=== PATIENT | male | born 1985 | race Caucasian/White ===

== ENCOUNTER 2021-08-11 14:40 | Emergency (ER) | payer OTHER ==
[~2021-08-11] VITALS: Ht 182.9 cm; Wt 91.0 kg
[2021-08-11 14:40] VITALS: BP 132/68
--- NOTE | 2021-08-11 15:05 | PHYS DOC ---
General Adult EDM: Chief Complaint: PAIN ON URINATION HPI: HPI: Patient is a 35-year-old male who presents to the emergency department for urinary urgency and decreased urine output, dark urine, dysuria, an. Patient reports that he is feeling suprapubic pressure like he has to urinate but only a little bit comes out. Patient reports that his symptoms started 2 days ago. He reports that on he had body aches, fever with nausea and vomiting but that has resolved. (LOCO VÁZQUEZ APRN) Review of Systems: Review of Systems: Constitutional: See HPI GI: See HPI : See HPI Musculoskeletal: See HPI (LOCO VÁZQUEZ APRN) Allergies: Allergies: Allergies Coded Allergies Type Severity Reaction Last Updated Verified No Known Drug Allergies 08/11/21 No (LOCO VÁZQUEZ APRN) Physical Exam: PE: Constitutional: Well developed, well nourished, no acute distress, non-toxic appearance. [] HENT: Normocephalic, atraumatic, bilateral external ears normal, oropharynx moist, no oral exudates, nose normal. [] Eyes: PERRLA, EOMI, conjunctiva normal, no discharge. [] Neck: Normal range of motion, no tenderness, supple, no stridor. [] Cardiovascular:Heart rate regular rhythm, no murmur [] Lungs & Thorax: Bilateral breath sounds clear to auscultation [] Abdomen: Bowel sounds normal, soft, no tenderness, no masses, no abdominal guarding or rigidity, no pulsatile masses. [] Skin: Warm, dry, no erythema, no rash. [] Back: No tenderness, no CVA tenderness. [] Extremities: No tenderness, no cyanosis, no clubbing, ROM intact, no edema. [] Neurologic: Alert and oriented X 3, normal motor function, normal sensory function, no focal deficits noted. [] Psychologic: Affect normal, judgement normal, mood normal. [] (LOCO VÁZQUEZ APRN) Current Patient Data: Labs: Laboratory Tests Test 08/11/21 14:50 Urine Collection Type Clean catch Urine Color Yellow Urine Clarity Hazy Urine pH 8.0 Urine Specific [place] 1.020 Urine Protein 30 mg/dl Urine Glucose (UA) Neg mg/dL Urine Ketones (Stick) Neg mg/dL Urine Blood Mod Urine Nitrite Neg Urine Bilirubin Neg Urine Urobilinogen Dipstick 1.0 mg/dL Urine Leukocyte Esterase Mod Urine RBC 6-10 /HPF Urine WBC 5-10 /HPF Urine Squamous Epithelial Cells Many /LPF Urine Bacteria Mod /HPF Vital Signs: Vital Signs Date Time Temp Pulse Resp B/P (MAP) Pulse Ox O2 Delivery O2 Flow Rate FiO2 08/11/21 14:40 97.7 87 16 132/68 (89) 99 Room Air (LOCO VÁZQUEZ APRN) EKG: EKG: [] (LOCO VÁZQUEZ APRN) Radiology/Procedures: Radiology/Procedures: [] (LOCO VÁZQUEZ APRN) Heart Score: C/O Chest Pain: N/A Risk Factors: Risk Factors: DM, Current or recent (<one month) smoker, HTN, HLP, family history of CAD, obesity. Risk Scores: Score 0 - 3: 2.5% MACE over next 6 weeks - Discharge Home Score 4 - 6: 20.3% MACE over next 6 weeks - Admit for Clinical Observation Score 7 - 10: 72.7% MACE over next 6 weeks - Early Invasive Strategies (LOCO VÁZQUEZ APRN) Course & Med Decision Making: Course & Med Decision Making Pertinent Labs and Imaging studies reviewed. (See chart for details) [] Patient presents to the emergency department for urinary urgency, dysuria. Urinalysis was performed that showed urinary tract infection. Patient also had gonorrhea and Chlamydia testing performed of her urine. Patient be notified of those results if he is positive in 1 to 2 days. Patient be treated with an antibiotic. Advised to increase fluids and avoid bladder irritants. He will be discharged home with nausea medication as needed. I discussed with patient all findings and diagnostic testing as well as the need to follow-up with PCP for further evaluation and treatment or return to the ER if any new or worsening symptoms. Strict return precautions were also discussed at length. Patient voiced understanding and agreement with the plan. Patient is hemodynamically stable at the time of disposition. (LOCO VÁZQUEZ APRN) Dragon Disclaimer: Dragon Disclaimer: This electronic medical record was generated, in whole or in part, using a voice recognition dictation system. (LOCO VÁZQUEZ APRN) Attending Co-Sign The patient was seen and interviewed as well as examined at the bedside. The chart was reviewed. The case was discussed. Agree with the plan of care. (ALEX VALIENTE DO) Departure Departure: Impression: Primary Impression: Urinary tract infection Qualified Codes: N30.01 - Acute cystitis with hematuria Disposition: HOME / SELF CARE / HOMELESS Condition: GOOD Referrals: PCP,UNKNOWN (PCP) Patient Instructions: Urinary Tract Infection Additional Instructions: You are seen in the emergency department for urinary symptoms. You are noted to have a urinary tract infection which will be treated with an antibiotic. We also tested you in the emergency department for gonorrhea and chlamydia as sometimes STIs can be a source of urinary tract infections. You will receive a phone call with your results if you are positive in 1 to 2 days. Please start and finish the antibiotic completely. Increase your fluids and avoid bladder irritants like caffeine, sugary beverages and alcohol. You can take Tylenol and ibuprofen at home for your pain. Follow-up with your primary care provider on Friday regarding your ER visit. Return to the emergency department if you develop abdominal pain, back pain, high fevers refractory to treatment, intractable nausea or vomiting, weakness. Scripts Ciprofloxacin Hcl (CIPRO) 500 Mg Tablet 1 TAB PO BID for INFECTION for 7 Days, #14 TAB 0 Refills Prov: LOCO VÁZQUEZ APRN 08/11/21 LOCO VÁZQUEZ APRN Aug 11, 2021 15:05 ALEX VALIENTE DO Aug 12, 2021 16:57
[2021-08-11 15:40] LABS: CLARITY,URINE HAZY; COLOR,URINE YELLOW; GLUCOSE,URINE NEG (NEG); NITRITE,URINE NEG (NEG)
[2021-08-11 15:41] LABS: BACTERIA,URINE MOD /HPF (0-FEW); SQUAMOUS EPITHELIAL CELL,UR MANY /LPF
[2021-08-11] MEDS ORDERED: CIPR500T94 PO (17:23)
== END 2021-08-11 17:28 | disposition home or self-care (01) ==
LOC: ER 14:40
DX: N30.01 Acute cystitis with hematuria (principal)
CPT/HCPCS: 36415; 81001; 87077; 87086; 87186; 87491; 87591; 99283